=== PATIENT | male | born 1975 | race Asian ===

== ENCOUNTER 2016-10-04 07:31 | Emergency (ER) | payer OTHER ==
[2016-10-04 07:45] VITALS: BP 132/71
--- NOTE | 2016-10-04 10:22 | UC ---
Leny Bello Salem, scribed for Christopher Duran MD on 10/04/16 at 0827 . Abdominal Pain Male HPI - HPI Summary HPI Summary: Patient is a 41 y/o M who presents to the with abd complaint since 5 days ago. He states that 6 days ago he consumed EtOH and 5 days ago he went to a [employer] buffet, ate nothing atypical, but developed a diffuse intermittent rash. He reports fatigue, body aches, loss of appetite, pressure and burning in abd, and tarry stool (intermittently since 4 days ago), but denies changes in urine. He states he took Pepto Bismol (after the tarry stool) and that he takes 2 81mg ASA for chronic knee pain. NKDA, but reports allergies to trees. Patients medication reviewed this visit. - History of Current Complaint Chief Complaint: UCAbdominalPain Stated Complaint: ABDOMINAL COMPLAINT Time Seen by Provider: 10/04/16 07:48 Hx Obtained From: Patient Onset/Duration: Gradual Onset, Lasting Days, Still Present Timing: Constant Severity Initially: Moderate Severity Currently: Moderate Pain Intensity: 0 Pain Scale Used: 0-10 Numeric Location: Diffuse Radiates: No Character: Aching, Burning Aggravating Factor(s):: Nothing Alleviating Factor(s): Nothing Associated Signs And Symptoms: Positive: Negative - Allergies/Home Medications Allergies/Adverse Reactions: Allergies Allergy/AdvReac Type Severity Reaction Status Date / Time No Known Allergies Allergy Verified 10/04/16 07:35 PMH/Surg Hx/FS Hx/Imm Hx - Surgical History Surgical History: Yes Surgery Procedure, Year, and Place: ACL - Family History Known Family History: Negative: Diabetes - Social History Alcohol Use: Weekly Substance Use Type: None Smoking Status (MU): Never Smoked Tobacco Review of Systems Constitutional: Fatigue, Other - "body aches" Gastrointestinal: Other - Pressure and burning - abd. Loss of appetite. Genitourinary: Other - No changes in urine. Tarry stool. All Other Systems Reviewed And Are Negative: Yes Physical Exam Triage Information Reviewed: Yes Vital Signs: Initial Vital Signs Temp 98.6 F 10/04/16 07:36 Pulse 76 10/04/16 07:36 Resp 16 10/04/16 07:36 BP 132/71 10/04/16 07:36 Pulse Ox 100 10/04/16 07:36 Vital Signs Reviewed: Yes - Additional Comments The patient is well-nourished in no acute distress and in no acute pain. The skin is warm and dry and skin color reflects adequate perfusion. HEENT: The head is normocephalic and atraumatic. The pupils are equal and reactive. The conjunctivae are clear and without drainage. Nares are patent and without drainage. Mouth reveals moist mucous membranes and the throat is without erythema and exudate. The external ears are intact. The ear canals are patent and without drainage. The tympanic membranes are intact. Neck is supple with full range of motion and non-tender. Respiratory: Chest is non-tender. Lungs are clear to auscultation and breath sounds are symmetrical and equal. Cardiovascular: Heart is regular rate and rhythm. There is no murmur or rub auscultated. There is no peripheral edema and pulses are symmetrical and equal. Abdomen: The abdomen is soft and non-tender. There are normal bowel sounds heard in all four quadrants and there is no organomegaly palpated. Musculoskeletal: There is no back pain noted. Neurological: Patient is alert and oriented to person, place and time. Psychiatric: The patient has an appropriate affect and does not exhibit any anxiety or depression. Abd Pain Male Course/Dx - Course Course Of Treatment: 41 y/o M presents with abd pressure and burning since 5 days ago. He reports fatigue, body aches, loss of appetite, pressure and burning in abd, but denies changes in urine. Pt will be DCd with Prilosec and instructions to follow up with PCP after labs. He is agreeable. It sounds like food allergies via pictures of hives after consuming food. He also reports black tarry stool. Differential of ulcer or gastritis. - Differential Dx/Clinical Impression Differential Diagnosis/HQI/PQRI: Peptic Ulcer Disease Provider Diagnoses: Allergic reaction via picture. Peptic ulcer dz. Discharge - Discharge Plan Condition: Stable Disposition: HOME Prescriptions: Omeprazole [Prilosec] 40 mg PO DAILY #60 cap Patient Education Materials: Peptic Ulcer (ED), General Allergic Reaction (ED) Referrals: Hamzah Vasquez MD [Medical Doctor] - Renzo Estrada MD [Medical Doctor] - Joaquín Hill MD [Primary Care Provider] - Additional Instructions: Please follow up with your primary care provider, Dr. Estrada, and Dr. Vasquez. The documentation as recorded by the Leny chappell Salem accurately reflects the service I personally performed and the decisions made by me, Christopher Duran MD.
[2016-10-04 12:23] LABS: Hematocrit 42 % (42-52); Hemoglobin 12.9 g/dl (14.0-18.0); Mean Corpuscular HGB Conc 31 g/dl (31-36); Mean Corpuscular Hemoglobin 21 pg (27-31); Mean Platelet Volume 8 um3 (7.4-10.4); Red Blood Count 6.17 10^6/ul (4.0-5.4); Red Cell Distribution Width 15 % (10.5-15); White Blood Count 4.3 10^3/ul (3.5-10.8)
[2016-10-04 12:32] LABS: Comments Flag Yes
[2016-10-04 12:33] LABS: Mean Corpuscular Volume 68 fL (80-94)
[2016-10-04 12:34] LABS: Albumin 4.3 g/dL (3.2-5.2); BUN/Creatinine Ratio 20.5 (8-20); C Reactive Protein 4.04 mg/L (< 5.00); Calcium 9.1 mg/dL (8.6-10.3); EGFR Non-African American 66.1 (>60); Globulin 2.3 g/dL (2-4); Potassium 3.9 mmol/L (3.5-5.0); Total Bilirubin 0.4 mg/dL (0.2-1.0); Total Protein 6.6 g/dL (6.4-8.9)
--- NOTE | 2016-10-05 16:22 | UC ---
Progress - Progress Note Progress Note: pt has abnormal lab findings that reveal anemia and renal insufficiency. this may be indicative of slow gi bleed. pt should f/u with pcp on saturday. if sx worsen or new ones develop, he should go to ed for re-eval.
== END 2016-10-04 08:13 | disposition home or self-care (01) ==
LOC: UCEAST 07:31
DX: T78.1XXA Other adverse food reactions, not elsewhere classified, initial encounter (principal); R21 Rash and other nonspecific skin eruption; X58.XXXA Exposure to other specified factors, initial encounter; K27.9 Peptic ulcer, site unspecified, unspecified as acute or chronic, without hemorrhage or perforation
CPT/HCPCS: 36415; 80053; 85025; 86140; 99212; G0463

== ENCOUNTER 2017-06-17 11:04 | Emergency (ER) | payer OTHER ==
[2017-06-17] MEDS ORDERED: Aspirin Low Dose CHEW TAB* 81 MG PO ONE (11:20)
[2017-06-17 11:21] VITALS: BP 123/76
[2017-06-17] MEDS ORDERED: Nitroglycerin TAB 0.4 MG* 0.4 MG TAB SL ONE (11:21)
--- NOTE | 2017-06-17 11:27 | UC ---
Cardiac HPI - HPI Summary HPI Summary: 41 yo male with one hr of sscp (pressure) and shortness of breath no n/v no diaphoresis 3 days ago had head pressure and severe vertigo - History of Current Complaint Chief Complaint: UCDizziness Stated Complaint: DIZZY,CHEST PAIN Time Seen by Provider: 06/17/17 11:13 Hx Obtained From: Patient Onset/Duration: Sudden Onset Timing: Constant Initial Severity: Mild Current Severity: Mild Pain Intensity: 3 Chest Pain Location: Mid Sternal Character: Pressure/Squeezing Aggravating Factor(s): Exertion, Other - onset after going up 3 flights of stairs Alleviating Factor(s): Nothing Associated Signs & Symptoms: Positive: SOB - Allergy/Home Medications Allergies/Adverse Reactions: Allergies Allergy/AdvReac Type Severity Reaction Status Date / Time No Known Allergies Allergy Verified 06/17/17 11:21 Home Medications: Home Medications Aspirin EC Low Dose* [Ecotrin EC Low Dose 81 MG*] 81 mg PO DAILY 06/17/17 [ History Confirmed 06/17/17] PMH/Surg Hx/FS Hx/Imm Hx Previously Healthy: Yes - Surgical History Surgical History: Yes Surgery Procedure, Year, and Place: ACL - Family History Known Family History: Positive: Hypertension Negative: Diabetes - Social History Alcohol Use: Rare Substance Use Type: None Smoking Status (MU): Never Smoked Tobacco Review of Systems Constitutional: Negative Skin: Negative Eyes: Negative ENT: Negative Respiratory: Shortness Of Breath Cardiovascular: Chest Pain Gastrointestinal: Negative Genitourinary: Negative Motor: Negative Neurovascular: Negative Musculoskeletal: Negative Neurological: Negative Psychological: Negative Is Patient Immunocompromised?: No All Other Systems Reviewed And Are Negative: Yes Physical Exam Triage Information Reviewed: Yes Appearance: Well-Appearing, No Pain Distress, Well-Nourished Vital Signs: Initial Vital Signs Temp 98.1 F 06/17/17 11:15 Pulse 63 06/17/17 11:15 Resp 18 06/17/17 11:15 BP 123/76 06/17/17 11:15 Pulse Ox 100 06/17/17 11:15 Vital Signs Reviewed: Yes Eyes: Positive: Conjunctiva Clear ENT: Positive: Hearing grossly normal, Uvula midline. Negative: Nasal congestion, Nasal drainage, Trismus, Muffled voice, Hoarse voice, Dental tenderness Neck: Positive: Supple, Nontender, No Lymphadenopathy Respiratory: Positive: Lungs clear, Normal breath sounds, No respiratory distress Cardiovascular: Positive: RRR, No Murmur Abdomen Description: Positive: Nontender, No Organomegaly, Soft Musculoskeletal: Positive: ROM Intact, No Edema Psychological Exam: Normal Skin Exam: Normal Diagnostics - EKG Cardiac Rate: NL Cardiac Rhythm: Sinus: Normal Ectopy: None ST Segment: Non-Specific - Assessment/Plan Course Of Treatment: d/w Dr. Poon. to [facility] er via [place] - Clinical Impression Provider Diagnoses: chest pain of uncertain cause Discharge - Discharge Plan Condition: Stable Disposition: [facility] Referrals: Joaquín Hill MD [Primary Care Provider] -
== END 2017-06-17 11:55 | disposition short-term general hospital (02) ==
LOC: UCEAST 11:04
DX: R07.89 Other chest pain (principal); R06.02 Shortness of breath; R42 Dizziness and giddiness; R00.1 Bradycardia, unspecified; Z79.82 Long term (current) use of aspirin
CPT/HCPCS: 93005; 99213; A9270-GY; G0463

== ENCOUNTER 2017-06-17 12:16 | Emergency (ER) | payer OTHER ==
[2017-06-17 13:03] LABS: ABS Basophils 0.1 10^3/ul (0-0.2); ABS Eosinophils 0.1 10^3/ul (0-0.6); ABS Monocytes 0.4 10^3/ul (0-0.8); ABS Neutrophils 2.5 10^3/ul (1.5-7.7); ABS Nucleated RBC 0 10^3/ul; Eosinophil % 1.7 % (0-6); Hematocrit 40 % (42-52); Hemoglobin 12.6 g/dl (14.0-18.0); Lymphocyte % 25.8 % (25-47); Mean Corpuscular HGB Conc 32 g/dl (31-36); Mean Corpuscular Hemoglobin 21 pg (27-31); Mean Corpuscular Volume 68 fL (80-94); Mean Platelet Volume 7 um3 (7.4-10.4); Nucleated Red Blood Cells % 0.1; Platelet Count 221 10^3/ul (150-450); Red Blood Count 5.91 10^6/ul (4.0-5.4); Red Cell Distribution Width 15 % (10.5-15)
[2017-06-17 13:14] LABS: EGFR Non-African American 72.2 (>60)
[2017-06-17] MEDS ORDERED: Ibuprofen TAB* 600 MG PO ONE (18:59)
--- NOTE | 2017-06-17 19:38 | RAD ---
Indication: Head pressure since Wednesday, June 14, 2017. Comparison: No relevant prior exams available on the [facility] [place] [place] [facility] for comparison. Technique: Noncontrast CT vertex of skull through foramen magnum. Report: The sulci, ventricles, and basal cisterns are normal for age. [place] matter white matter differentiation is preserved without evidence for edema. No intra or extra axial hemorrhage, mass, or fluid collection detected. Unremarkable visualized orbital contents. Unremarkable calvarium and skull base. Unremarkable scalp. The visualized paranasal sinuses and mastoid air spaces are clear. IMPRESSION: Negative unenhanced head CT.
--- NOTE | 2017-06-17 20:21 | ED ---
I, Antonietta Mejia, scribed for Bertha Tafoya MD on 06/17/17 at 2002 . Progress - Progress Note Progress Note: Patient is a signout from Dr. Brody at shift change. - EKG/XRAY/CT CT: Negative CT Brain per radiologist. ED physician has reviewed this report. Re-Evaluation - Re-Evaluation First Eval Re-Evaluation Time: 19:55 Change: Improved Comment: Pt reexamined. Exam is unremarkable. Informed him of his negative CT scan. Says he feels mild head pressure that is not as bad as before. Agreeable to discharge. Course/Dx - Course Course Of Treatment: 41 y/o M is signout from Dr. Brody, awaiting CT Brain, c/ o of headache. Scan came back negative. Patient rexamined. Exam is normal. Agreeable to discharge. - Diagnoses Provider Diagnoses: Headache The documentation as recorded by the Roberto chappell Tiffany accurately reflects the service I personally performed and the decisions made by me, Bertha Tafoya MD.
[2017-06-17 20:22] VITALS: BP 106/60
--- NOTE | 2017-06-18 14:18 | ED ---
Noel Bello Angela, scribed for Edil Brody MD on 06/17/17 at 1303 . HPI Chest Pain - HPI Summary HPI Summary: This pt is a 41 y/[facility] c/o intermittent chest heaviness and headache today. Pt reports that 3 days ago that while working on his computer when he suddenly became dizzy. His dizziness is described as room spinning. Throughout the past 2 days pt notes he felt lightheadedness but spinning sensation resolved. Pt went to work today and his chest became heavier with SOB and nausea. He states his chest pressure today began at 10:30. Denies chest pain radiating down arm or into jaw. Pt reports mild sore throat, tingling on right great toe for a few weeks now. Today he denies cough, nausea, vomiting, recent long travel, LE swelling, LE pain. 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 Pt states his breathing currently is not normal. He reports his work is stressful but has been doing this for 15-20 years. Pt went to Urgent Care today and was given nitroglycerin and aspirin. Denies anxiety. Denies tobacco or drug use. Pt has taken 81 mg aspirin in the past. - History of Current Complaint Chief Complaint: EDChestPainROMI Time Seen by Provider: 06/17/17 12:25 Hx Obtained From: Patient Onset/Duration: Started Hours Ago, Still Present Timing: Lasting Hours Current Severity: Mild Pain Intensity: 2 Pain Scale Used: 0-10 Numeric Chest Pain Location: Diffuse Chest Pain Radiates: No Character: Heaviness Aggravating Factor(s): Nothing Alleviating Factor(s): Nothing Associated Signs and Symptoms: Positive: Chest Pain, Headaches, Shortness of Breath, Lightheadedness - Allergy/Home Medications Allergies/Adverse Reactions: Allergies Allergy/AdvReac Type Severity Reaction Status Date / Time No Known Allergies Allergy Verified 06/17/17 11:21 Home Medications: Home Medications Ibuprofen TAB* [Advil TAB*] 200 mg PO Q6H PRN 06/17/17 [History Confirmed ] PMH/Surg Hx/FS Hx/Imm Hx Endocrine/Hematology History: Denies: Hx Diabetes, Hx Thyroid Disease Cardiovascular History: Denies: Hx Hypertension Respiratory History: Reports: Hx Asthma Denies: Hx Chronic Obstructive Pulmonary Disease (COPD) GI History: Denies: Hx Ulcer - Surgical History Surgery Procedure, Year, and Place: ACL Infectious Disease History: No Infectious Disease History: Denies: Hx Hepatitis, Hx Human Immunodeficiency Virus (HIV), Traveled Outside the [place] in Last 30 Days - Family History Known Family History: Positive: Hypertension Negative: Diabetes - Social History Alcohol Use: Rare Substance Use Type: Reports: None Smoking Status (MU): Never Smoked Tobacco Review of Systems Negative: Fever, Chills Negative: Erythema Positive: Sore Throat - mild Positive: Chest Pain Positive: Shortness Of Breath. Negative: Cough Negative: Abdominal Pain, Vomiting, Nausea Negative: dysuria, hematuria Negative: Myalgia, Edema Negative: Rash Neurological: Other - POS: lightheadedness. NEG: dizziness Negative: Anxious All Other Systems Reviewed And Are Negative: Yes Physical Exam - Summary Physical Exam Summary: Constitutional: Well-developed, Well-nourished, Alert. (-) Distressed Skin: Warm, Dry HENT: Normocephalic; Atraumatic Eyes: Conjunctiva normal Neck: Musculoskeletal ROM normal neck. (-) JVD, (-) Stridor, (-) Tracheal deviation Cardio: Rhythm regular, rate normal, Heart sounds normal; Intact distal pulses; The pedal pulses are 2+ and symmetric. Radial pulses are 2+ and symmetric. (-) Murmur Pulmonary/Chest wall: Effort normal. (-) Respiratory distress, (-) Wheezes, (-) Rales Abd: Soft, (-) Tenderness, (-) Distension, (-) Guarding, (-) Rebound Musculoskeletal: (-) Edema Lymph: (-) Cervical adenopathy Neuro: Alert, Oriented x3 Psych: Mood and affect Normal Triage Information Reviewed: Yes Vital Signs On Initial Exam: Initial Vitals Temp Pulse Resp BP Pulse Ox 97.9 F 60 18 123/70 100 06/17/17 12:17 06/17/17 12:17 06/17/17 12:17 06/17/17 12:17 06/17/17 12:17 Vital Signs Reviewed: Yes Diagnostics - Vital Signs Vital Signs Temp Pulse Resp BP Pulse Ox 06/17/17 12:23 64 15 100 06/17/17 12:22 123/70 06/17/17 12:17 97.9 F 60 18 123/70 100 - Laboratory Result Diagrams: 06/17/17 12:45 06/17/17 12:45 Lab Statement: Any lab studies that have been ordered have been reviewed, and results considered in the medical decision making process. - EKG 13:07 Cardiac Rate: Bradycardia EKG Interpretation: slow sinus arrhythmia at 50 bpm. No STEMI. 12:27 Cardiac Rate: Bradycardia EKG Rhythm: Sinus Bradycardia - at 57 bpm EKG Interpretation: No STEMI. Re-Evaluation - Re-Evaluation First Eval Re-Evaluation Time: 17:10 Change: Unchanged Comment: Pt still feels SOB. Second Eval Re-Evaluation Time: 18:45 Comment: Pt declined hospitalist admission. He would like an outpatient stress test instead. Pt does not want to go home without having a CT done as he is concerned about the pressure in the back of his head, dizziness, and lightheadedness. Chest Pain Course/Dx - Course Course Of Treatment: Lab work and EKG were obtained. 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 I offered the pt admission and the hospitalist evaluated him for admission. Pt declined admission and would like to have an outpatient stress test. MS was ruled out. His CRISTIAN score is 0. Pt does not want to go home without having a CT done as he is concerned about the pressure in the back of his head, dizziness, and lightheadedness. Pt will be signed out to Dr. Tafoya, pending disposition, awaiting CT. - Diagnoses Provider Diagnoses: Chest pain, Dizziness, SOB (shortness of breath) - Provider Notifications Discussed Care Of Patient With: Devante Card Time Discussed With Above Provider: 17:16 Instructed by Provider To: Other - I discussed pt care with Dr. Card, hospitalist, who has agreed to admit the pt. Discharge - Discharge Plan Condition: Stable Disposition: OTHER Discharge Disposition Comment: Pt will be signed out to Dr. Tafoya, pending disposition, awaiting CT. The documentation as recorded by the Noel chappell Angela accurately reflects the service I personally performed and the decisions made by me, Edil Brody MD.
== END 2017-06-17 20:22 ==
LOC: ED 12:16 → MEDTELE 17:57 → UNDOADMOB 17:57 → ED 20:22
DX: R51 Headache (principal); R07.9 Chest pain, unspecified; R42 Dizziness and giddiness; R06.02 Shortness of breath; J02.9 Acute pharyngitis, unspecified
CPT/HCPCS: 36415; 70450; 80053; 80061; 83605; 84484; 85025; 85379; 93005; 99282; A9270-GY